=== PATIENT | female | born 1955 | race Caucasian/White ===

== ENCOUNTER 2019-02-14 16:02 | Outpatient (CLI) | payer MEDICARE, OTHER ==
--- NOTE | 2019-02-14 16:33 | RAD ---
EXAM: 3 views of the cervical spine with neutral, flexion, and extension views PROVIDED CLINICAL HISTORY: Neck pain. History of prior surgery. Cervical radiculopathy. COMPARISON: 01/13/2019. FINDINGS: Again noted are postsurgical changes related to anterior cervical fusion at the C3-4 level with anter ior plate and screws again transfixing this level. 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 There is persistent anterolisthesis of C3 on C4 and to a lesser extent C4 on C5. The degree of ly listhesis at the C3-4 level on flexion measures approximately 6 mm and corrects to 3 mm on extension. The degree of anterolisthesis at the C4-5 level measures approximately 3 mm on flexion and corrects on extension. No fracture is visualized. Lucency along the anterior superior endplate of the C4 vertebral body is stable when compared to the prior study and probably postsurgical in origin. Degenerative changes are again seen at the C5-6 and C6-7 levels. No other interval change. IMPRESSION: 1. Stable postoperative changes with evidence of anterior cervical fusion at the C3-4 level. 2. Anterolisthesis of C3 on C4 and C4 on C5 with improvement in degree of anterolisthesis between fle xion and extension.
== END 2019-02-14 16:03 | disposition home or self-care (01) ==
LOC: TBSIIMAG 16:02
PROVIDERS: ATTEND Neurological Surgery
DX: M54.12 Radiculopathy, cervical region (principal); M43.12 Spondylolisthesis, cervical region; Z98.1 Arthrodesis status; Z98.890 Other specified postprocedural states
CPT/HCPCS: 72040

== ENCOUNTER 2020-08-13 10:02 | Outpatient (CLI) | payer MEDICARE, OTHER ==
[2020-08-13 10:21] LABS: Estimated GFR-MDRD - POC Greater than 90
[2020-08-13] MEDS ORDERED: Iopamidol 370 76% 100 ML VIAL ONE (12:04)
== END 2020-08-13 10:03 | disposition home or self-care (01) ==
LOC: CT 10:02
PROVIDERS: ATTEND Internal Medicine Pulmonary Disease
DX: R91.1 Solitary pulmonary nodule (principal); I25.10 Atherosclerotic heart disease of native coronary artery without angina pectoris; J44.9 Chronic obstructive pulmonary disease, unspecified
CPT/HCPCS: 71260; 82565; 86900; 86901; Q9967

== ENCOUNTER 2021-02-12 11:48 | Outpatient (CLI) | payer MEDICARE, OTHER ==
[~2021-02-12 11:48] MED LIST: Iopamidol 370 76% 100 ML VIAL ONE
[2021-02-12 12:15] LABS: Estimated GFR-MDRD - POC Greater than 90
== END 2021-02-12 11:49 | disposition home or self-care (01) ==
LOC: CT 11:48
PROVIDERS: ATTEND Internal Medicine Pulmonary Disease
DX: R91.1 Solitary pulmonary nodule (principal)
CPT/HCPCS: 71260; 82565

== ENCOUNTER 2021-10-11 18:55 | Emergency (ER) | payer MEDICARE, OTHER ==
[2021-10-11 19:29] LABS: Hemoglobin 13.7 g/dL (12.0-16.0); Mean Corpuscular HGB CONC 32.7 g/dL (32.0-36.0); Mean Platelet Volume 7.6 fL (7.4-10.4); Platelet Count 241 thou/uL (130-400); RBC Distribution Width 10.7 % (11.5-14.5); Red Blood Cell (RBC) Count 4.04 mill/uL (4.20-5.40)
[2021-10-11 19:45] LABS: Band 24 % (5-11); Lymphocytes 3 % (21-51); MDiff Complete? YES; Macrocytosis SLIGHT = 6-15 cells (100X) (0-5/hpf); Monocytes 3 % (0-10); Neutrophil 70 % (42-75); Platelet Morphology Comment Appears Adequate; Vacuoles SLIGHT
[2021-10-11 19:50] LABS: ALT (SGPT) 25 U/L (8-55); AST (SGOT) 23 U/L (5-34); Albumin 3.8 g/dL (3.4-4.8); Alkaline Phosphatase 62 U/L (40-110); Anion Gap 16 mmol/L (10-20); BUN (Urea Nitrogen) 18 mg/dL (9.8-20.1); Bilirubin, Total 0.6 mg/dL (0.2-1.2); Calc. Creatinine Clearance 0 mL/min (70-130); Calcium 8.6 mg/dL (7.8-10.44); Carbon Dioxide 21 mmol/L (23-31); Chloride 98 mmol/L (98-107); Globulin 1.8 g/dL (2.4-3.5); Glucose 80 mg/dL (80-115); Lipase 6 U/L (8-78); Potassium 3.6 mmol/L (3.5-5.1); Protein, Total 5.6 g/dL (5.8-8.1); Sodium 131 mmol/L (136-145)
[2021-10-11] MEDS ORDERED: Morphine 4 MG/ML VIAL ONE (20:35)
[2021-10-11] MEDS ORDERED: Acetaminophen 500 MG TAB ONE (22:46)
== END 2021-10-11 23:25 | disposition home or self-care (01) ==
LOC: ERS 18:55
DX: R07.9 Chest pain, unspecified (principal); R10.9 Unspecified abdominal pain; R06.82 Tachypnea, not elsewhere classified; F17.210 Nicotine dependence, cigarettes, uncomplicated; Z86.73 Personal history of transient ischemic attack (TIA), and cerebral infarction without residual deficits
CPT/HCPCS: 36415; 71045; 71250; 80053; 83605; 83690; 83880; 84484; 85025; 85379; 86900; 86901; 93005; 94640; J2270; J7620

== ENCOUNTER 2022-01-08 12:24 | Outpatient (CLI) | payer MEDICARE, OTHER | END 2022-01-08 12:25 | disposition home or self-care (01) | LOC: RAD 12:24 | PROVIDERS: ATTEND Internal Medicine | DX: R91.1 Solitary pulmonary nodule (principal) | CPT/HCPCS: 71046 ==